=== PATIENT | female | born 1985 | race Caucasian/White ===

== ENCOUNTER 2020-10-28 13:12 | Emergency (ER) | payer OTHER ==
[~2020-10-28] VITALS: Ht 167.6 cm; Wt 114.0 kg
[2020-10-28 14:18] LABS: HEMOGLOBIN 13.6 g/dl (12.0-15.5); MEAN CORPUSCULAR HGB CONC 33.2 g/dl (32.0-36.5); MEAN CORPUSCULAR VOLUME 90.3 fl (80.0-96.0); PLATELET COUNT, AUTOMATED 218 10^3/uL (150-450); RED BLOOD COUNT 4.54 10^6/uL (4.00-5.40); WHITE BLOOD COUNT 9.2 10^3/uL (4.0-10.0)
--- NOTE | 2020-10-28 15:47 | REP ---
INDICATION: bleeding; cramping. COMPARISON: None. TECHNIQUE: Multiple ultrasonographic images of the gravid uterus including transabdominal, endovaginal and Doppler ultrasound evaluation. FINDINGS: The patient reportedly has an hCG of 120 units. The uterus is anteverted and enlarged measuring 10.2 x 4.8 x 6.1 cm. The endometrium is upper normal thickness measuring 14.5 mm. There is an intrauterine gestational sac measuring 3.8 x 2.5 x 2.4 mm. The mean sac diameter is 2.9 mm corresponding to gestational age of 4 weeks 5 days. There is no identifiable pole at this time. Right ovary: The right ovary measures 1.7 x 1.2 x 1.8 cm and is normal size. There is no dominant mass or cyst. Left ovary: The left ovary measures 2.4 x 1.7 x 1.7 cm and is normal size. There is no dominant left ovarian mass or cyst. The left ovary is identified by trans abdominal imaging only. There is vascular flow in the right ovary. The Doppler resistive index in the parenchymal arteries of the right ovary is 0.67 . There is no Doppler assessment of the left ovary. IMPRESSION: Intrauterine gestational sac without pole. This could represent early gestation not yet visible by ultrasound, spontaneous or ectopic gestation. Close follow-up is recommended. <Electronically signed by Herberth Baig > 10/28/20 [id number]
[2020-10-28 16:32] VITALS: BP 131/83
== END 2020-10-28 16:47 | disposition home or self-care (01) ==
LOC: M ED 13:12
DX: O20.0 Threatened abortion (principal); Z88.2 Allergy status to sulfonamides

== ENCOUNTER 2020-10-31 06:29 | Emergency (ER) | payer OTHER ==
[~2020-10-31] VITALS: Ht 167.6 cm; Wt 114.6 kg
[2020-10-31 08:15] VITALS: BP 162/74
== END 2020-10-31 08:30 | disposition home or self-care (01) ==
LOC: M ED 06:29
DX: O03.9 Complete or unspecified spontaneous abortion without complication (principal); F41.9 Anxiety disorder, unspecified; F33.9 Major depressive disorder, recurrent, unspecified; Z88.2 Allergy status to sulfonamides